=== PATIENT | female | born 1945 | race Hispanic/Latino ===

== ENCOUNTER 2021-06-30 10:09 | Outpatient (CLI) | payer OTHER, MEDICARE | END 2021-06-30 19:14 | disposition home or self-care (01) | LOC: CT 10:09 | PROVIDERS: ATTEND Internal Medicine Medical Oncology | DX: D69.6 Thrombocytopenia, unspecified (principal); R16.2 Hepatomegaly with splenomegaly, not elsewhere classified; R53.81 Other malaise | CPT/HCPCS: 36415; 82565; 84520; Q9963 ==